=== PATIENT | female | born 1955 | race Two or more races ===

== ENCOUNTER 2023-12-09 07:09 | Emergency (ER) | payer OTHER ==
[~2023-12-09] VITALS: Ht 157.5 cm; Wt 73.0 kg
[2023-12-09] MEDS ORDERED: LOSARTAN POTAS100 MG PO (07:17)
[2023-12-09] MEDS ORDERED: ADULT LOW DOSE81 M1 (07:18)
[2023-12-09] MEDS ORDERED: METFORMIN HCL1000 M2 PO (07:18)
[2023-12-09] MEDS ORDERED: SINGULAIR 5MG5 MG PO (07:19)
[2023-12-09] MEDS ORDERED: ROSUVASTATIN CA40 MG PO (07:19)
[2023-12-09] MEDS ORDERED: AMLODIPINE-OLM1 EAC2 PO (07:20)
[2023-12-09] MEDS ORDERED: KETOROLAC TROMETHAMINE 30 MG VIAL IM STA (08:40)
== END 2023-12-09 09:37 | disposition home or self-care (01) ==
LOC: ER 07:10
DX: U07.1 COVID-19 (principal); E11.9 Type 2 diabetes mellitus without complications; Z79.84 Long term (current) use of oral hypoglycemic drugs; I10 Essential (primary) hypertension
CPT/HCPCS: 96372; 99282; J1885